=== PATIENT | male | born 1940 | race Caucasian/White ===

== ENCOUNTER 2017-07-14 14:55 | Emergency (ER) | payer MEDICARE, BC ==
[2017-07-14 15:06] VITALS: BP 123/72
[2017-07-14] MEDS ORDERED: methylPREDNISolone 125 MG* 2 ML VIAL IM ONE (15:15)
[2017-07-14] MEDS ORDERED: Albuterol 2.5 MG/3 ML NEB.SOL* (0.083%) INH ONE (15:15)
[2017-07-14] MEDS ORDERED: Albuterol/Ipratropium NEB.SOL* Albuterol 2.5 MG/Ipratropium 0.5 MG 3 ML INH ONE (15:15)
--- NOTE | 2017-07-14 15:20 | UC ---
Respiratory Complaint HPI - HPI Summary HPI Summary: Recent copd exacerbation a few weeks ago and then he came off prednisone and within the next few days he was coughing again. for the last 4-5 days he has been coughing again and it is worsening. There is scant hemoptysis. no cp./ There is swelling of the shawna legs that is c/w prior. no calf pain. There is no fever. He has O2 at home to be used prn. 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 Negative: Fever, Chills, Pleuritic Chest Pain, Dizziness, Calf Pain - Risk Factors Pulmonary Embolism Risk Factors: Negative - Allergies/Home Medications Allergies/Adverse Reactions: Allergies Allergy/AdvReac Type Severity Reaction Status Date / Time No Known Allergies Allergy Verified 07/14/17 15:01 Home Medications: Home Medications Albuterol HFA INHALER* [Ventolin HFA Inhaler*] 2 puff Q6HR PRN 07/14/17 [ History Confirmed 07/14/17] Aspirin [Aspirin 81 MG TAB] 1 tab DAILY 07/14/17 [History Confirmed 07/14/17] Atenolol TAB* [Tenormin TAB* 50 MG] 100 mg PO DAILY 07/14/17 [History Confirmed 07/14/17] Budesonide/Formote 160/4.5(NF) [Symbicort 160/4.5 (NF)] 1 puff BID 07/14/17 [ History Confirmed 07/14/17] Furosemide TAB* [Lasix TAB*] 40 mg DAILY 07/14/17 [History Confirmed 07/14/17] Ipratropium 0.5MG/2.5ML NEB* [Atrovent 0.5 MG NEB.ALBAN*] 1 inh Q4HR PRN 07/14/17 [History Confirmed 07/14/17] Roflumilast [Daliresp] 1 tab DAILY 07/14/17 [History Confirmed 07/14/17] Tamsulosin CAP* [Flomax CAP*] 1 tab DAILY 07/14/17 [History Confirmed 07/14/17] PMH/Surg Hx/FS Hx/Imm Hx Previously Healthy: No - copd. denies heart disease of any kind. - Surgical History Surgical History: Yes Surgery Procedure, Year, and Place: HERNIA REPAIR - Family History Known Family History: Positive: Other - no asthma. - Social History Lives: With Family Alcohol Use: None Substance Use Type: None Smoking Status (MU): Never Smoked Tobacco - Immunization History Most Recent Influenza Vaccination: not yet 2017 Review of Systems Respiratory: Cough All Other Systems Reviewed And Are Negative: Yes Physical Exam Triage Information Reviewed: Yes Appearance: Well-Nourished, Pain Distress - frequent dry cough but still pleasant and jovial. He is non toxic. Vital Signs: Initial Vital Signs Temp 98 F 07/14/17 15:02 Pulse 70 07/14/17 15:02 Resp 20 07/14/17 15:02 BP 123/72 07/14/17 15:02 Pulse Ox 95 07/14/17 15:02 Vital Signs Reviewed: Yes Eyes: Positive: Conjunctiva Clear ENT: Positive: Normal ENT inspection Neck exam: Normal Neck: Positive: Supple, Nontender, No Lymphadenopathy Respiratory: Positive: No accessory muscle use, Decreased breath sounds, Wheezing. Negative: Respiratory distress, Accessory muscle use, Crackles, Rhonchi, Stridor Cardiovascular: Positive: RRR, No Murmur, Brisk Capillary Refill Abdominal Exam: Normal Abdomen Description: Positive: Nontender, No Organomegaly, Soft. Negative: CVA Tenderness (R), CVA Tenderness (L), Distended, Guarding Musculoskeletal: Positive: Edema @ - shawna calves and ankles. Neurological: Positive: Alert, Muscle Tone Normal. Negative: Fatigued, Lethargic, Unresponsive Psychological Exam: Normal Psychological: Positive: Normal Response To Family Skin: Negative: rashes UC Diagnostic Evaluation - Laboratory O2 Sat by Pulse Oximetry: 95 Respiratory Course/Dx - Course Course Of Treatment: he is much improved after duo neb. No signs of pneumonia. no signs of heart failure and denies any cardiac symptoms. no clinical signs of PE. he will return to ed for any worsening. f/u pcp in 1-2 days. - Differential Dx/Diagnosis Provider Diagnoses: acute copd exacerbation. Discharge - Discharge Plan Condition: Good Disposition: HOME Prescriptions: Azithromyxin RASHAWN (NF) [Z-Rashawn (Zithromax) 250 mg tabs #6] 1 tab PO .TODAY, THEN 1 DAILY #6 tab predniSONE TAB* [Deltasone TAB*] 20 mg PO DAILY #20 tab Patient Education Materials: COPD (Chronic Obstructive Pulmonary Disease) (ED) Referrals: Froylan PROTOHISTORIAN,Willie Kay [Primary Care Provider] - 2 Days
--- NOTE | 2017-07-14 16:18 | RAD ---
INDICATION: Cough, hemoptysis, shortness of breath. Worsening in the past 24 hours. COMPARISON: No relevant prior exams available on the [facility] for comparison. TECHNIQUE: Dual energy PA and routine lateral views of the chest were obtained. REPORT: Mildly elevated lung volumes. Clear lungs and pleural spaces. Negative for pneumothorax. Negative for cardiomegaly. Unremarkable central pulmonary vasculature. Mildly tortuous descending thoracic aorta. No thoracic fractures or suspicious focal osseous lesions evident. IMPRESSION: Stigmata of potential chronic obstructive pulmonary disease. No acute cardiopulmonary process evident.
== END 2017-07-14 16:15 | disposition home or self-care (01) ==
LOC: UCCORT 14:55
DX: J44.1 Chronic obstructive pulmonary disease with (acute) exacerbation (principal)
CPT/HCPCS: 71020; 96372; 99212; A9270-GY; G0463; J2930